=== PATIENT | male | born 1940 | race Caucasian/White ===

== ENCOUNTER → 2017-08-11 | Outpatient (CLI) | payer MEDICARE ==
[~2017-08-11] MED LIST: ANEXSIA 7.5/321 EACH; ASPIRIN LOW DOS81 MG PO; CEPHALEXIN; METRONIDAZOLE500 MG PO; TRADJENTA5 MG PO; Z.0.ACTOS15 MG PO; Z.0.DIAZEPAM5 MG; Z.0.GLIPIZIDE10 MG PO; Z.0.LISINOPRIL20 MG PO; Z.0.LOVASTATIN20 MG PO; Z.0.MELOXICAM15 MG; Z.0.ONGLYZA5 MG PO; Z.0.TRICOR145 MG PO
--- NOTE | 2017-08-11 16:29 | Diagnostic Imaging Report ---
Exam: Head CT without contrast History: Leg pain, weakness Comparison studies: None Technique: Axial images were obtained from the skull base to the vertex. Coronal and sagittal images reconstructed from the axial data. Intravenous contrast: None Findings: Scalp: No abnormalities. Bones: No fractures, blastic or lytic lesions. Brain sulci: Mildly prominent. Ventricles: Mild compensatory dilatation. No hydrocephalus. Extra-axial spaces: No masses, no fluid collection. Parenchyma: No mass, acute hemorrhage or acute cortical vascular insults. A few subtle hypodensities in the supratentorial white matter are nonspecific but most compatible with chronic small vessel ischemic changes. Incidental normal variant prominent prevascular space along the inferior margin of the left putamen. Sellar/suprasellar region: No abnormalities. Craniocervical junction: Patent foramen magnum. No Chiari one malformation. Incidental findings: Atherosclerotic calcifications in the carotid siphons and left intradural vertebral artery. IMPRESSION: No acute abnormalities. Chronic findings: 1. Mild generalized volume loss. 2. Mild supratentorial microvascular ischemic changes. Signed by: Dr. Maged Dickson M.D. on 08/11/2017 4:26 PM
== END ==
LOC: CT 15:14
PROVIDERS: ATTEND Family Medicine
DX: M79.605 Pain in left leg (principal); R20.0 Anesthesia of skin
CPT/HCPCS: 70450

== ENCOUNTER 2017-10-07 13:33 | Emergency (ER) | payer MEDICARE ==
[~2017-10-07] VITALS: Ht 180.3 cm; Wt 77.1 kg
--- OUTSIDE RECORDS SUMMARY | 2017-10-07 13:37 | XMS REPORT ---
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 Allergies, Adverse Reactions, Alerts This patient has no known allergies or adverse reactions. Medications This patient has no known medications. Results Test Description Test Time Test Comments Text Results Atomic Results Result Comments CT BRAIN WO [place] [address] Patient Name: CARSON CRAVEN MR #: [id number] : 1940 Age/Sex: 77/M Req #: [id number] Adm Physician: Ordered by: ROBERT KENNEDY DO Report #: [id number] Location: CT Room/Bed: Procedure: [id number] CT/CT BRAIN WO Exam Date: Exam Time: REPORT STATUS: Signed Exam: Head CT without contrast History: Leg pain, weakness Comparison studies: None Technique: Axial images were obtained from the skull base to the vertex. Coronal and sagittal images reconstructed from the axial data. Intravenous contrast: None Findings: Scalp: No abnormalities. Bones: No fractures, blastic or lytic lesions. Brain sulci : Mildly prominent. Ventricles: Mild compensatory dilatation. No hydrocephalus. Extra-axial spaces: No masses, no fluid collection. Parenchyma: No mass, acute hemorrhage or acute cortical vascular insults. A few subtle hypodensities in the supratentorial white matter are nonspecific but most compatible with chronic small vessel ischemic changes. Incidental normal variant prominent prevascular space along the inferior margin of the left putamen. Sellar/suprasellar region: No abnormalities. Craniocervical junction: Patent foramen magnum. No Chiari one malformation. Incidental findings: Atherosclerotic calcifications in the carotid siphons and left intradural vertebral artery. IMPRESSION: No acute abnormalities. Chronic findings: 1. Mild generalized volume loss. 2. Mild supratentorial microvascular ischemic changes. Signed by: Dr. Rose Dickson M.D. on 08/11/2017 4:26 PM Dictated By: ROSE DICKSON MD 25 Transcribed By: ALLISON on 08/11/171625 COPY TO: ROBERT KENNEDY DO CHEST 2 VIEWS [place] [address] Patient Name: CARSON CRAVEN MR #: [id number] : 1940 Age/Sex: 76/M Req #: [id number] Adm Physician: Ordered by: GILMA GARCIA MD Report #: [id number] Location: [facility] Room/Bed: Procedure: [id number] DX/CHEST 2 VIEWS Exam Date: 05/29/17 Exam Time: 1340 REPORT STATUS: Signed PROCEDURE: Frontal and lateral views of the chest. COMPARISON: [facility], CT, CT ABDOMEN/PELVIS W CONTRAST, 03/29/2011, 23:51. [facility], DX, ABDOMEN ACUTE SERIES W/PA CXR, 02/02/2016, 21:42. INDICATIONS: COUGH, ASBESTOS EXPOSURE FINDINGS: Lines/tubes: None. Lungs: The lungs are well inflated. Stable wedge-shaped opacity in the left lower lobe/left retrocardiac region, corresponding to the previously visualized chronic bronchiectasis/scarring on CT dated 03/29/2011. There is no evidence of New consolidation or pulmonary edema. Pleura: There is no pleural effusion or pneumothorax. Stable blunting of the right lateral costophrenic sulcus and right posterior costophrenic sulcus secondary to pleural thickening Heart and mediastinum: Cardiac silhouette is unremarkable. Pulmonary vasculature is normal. Bones: No acute bony abnormality. IMPRESSION : 1. No acute cardiopulmonary disease. 2. Stable left retrocardiac/ lower lobe chronic scarring with bronchiectasis as well as right lateral and left posterior costophrenic sulci pleural thickening Jose Antonio Rebolledo M.D. Dictated by: Jose Antonio Rebolledo M.D. on 05/29/2017 at 14:33 Electronically approved by: Jose Antonio Rebolledo M.D. on 05/29/2017 at 14:33 Dictated By: JOSE ANTONIO REBOLLEDO MD 1433 Transcribed By: BEKA on 05/29/17 1433 COPY TO: GILMA GARCIA MD
[2017-10-07] MEDS ORDERED: SODIUM CHLORIDE 0.9% 1000ML 1,000 ML IV STA (14:32)
[2017-10-07 14:55] LABS: BASOPHILS # (AUTO) 0.1 (0.0-0.1); BASOPHILS % 0.8 % (0.0-1.0); EOSINOPHILS # (AUTO) 0.2 (0.0-0.4); EOSINOPHILS % 3.3 % (0.0-6.0); HEMOGLOBIN 12.4 g/dL (14.0-18.0); LYMPHOCYTES # (AUTO) 2.2 (1.0-3.2); LYMPHOCYTES % 33.7 % (18.0-39.1); MEAN CORPUSCULAR HEMOGLOBIN 27.9 pg (28-32); MEAN CORPUSCULAR HGB CONC 33.5 g/dL (31-35); MEAN CORPUSCULAR VOLUME 83.3 fL (81-99); MONOCYTES # (AUTO) 0.4 (0.2-0.8); MONOCYTES % 5.4 % (4.4-11.3); NEUTROPHILS # (AUTO) 3.8 (2.1-6.9); NEUTROPHILS % 56.6 % (38.7-80.0); PLATELET COUNT 198 x10e3/uL (140-360); RED BLOOD COUNT 4.44 x10e6/uL (4.3-5.7); RED CELL DISTRIBUTION WIDTH 14.9 % (11.7-14.4)
[2017-10-07 15:12] LABS: ALANINE AMINOTRANSFERASE 18 IU/L (0-55); ALBUMIN 3.8 g/dL (3.5-5.0); ALBUMIN/GLOBULIN RATIO 1.5 (0.8-2.0); ALKALINE PHOSPHATASE 61 IU/L (40-150); ANION GAP 13.5 mmol/L (8-16); BLOOD UREA NITROGEN 20 mg/dL (7-26); BUN/CREATININE RATIO 15 (6-25); CALCIUM 9.3 mg/dL (8.4-10.2); CARBON DIOXIDE 22 mmol/L (22-29); CHLORIDE 108 mmol/L (98-107); CREATINE KINASE 86 IU/L (30-200); CREATININE, SERUM 1.34 mg/dL (0.72-1.25); EST GLOMERULAR FILTRATION RATE 52 ML/MIN (60-); GLUCOSE 228 mg/dL (74-118); POTASSIUM 4.5 mmol/L (3.5-5.1); SODIUM 139 mmol/L (136-145)
[2017-10-07 15:14] LABS: BILIRUBIN,URINE NEGATIVE (NEGATIVE); CLARITY,URINE CLEAR (CLEAR); COLOR,URINE YELLOW (YELLOW); EPITHELIAL CELLS,URINE RARE /LPF; KETONES,URINE NEGATIVE (NEGATIVE); LEUKOCYTE ESTERASE ,URINE NEGATIVE (NEGATIVE); NITRITE,URINE NEGATIVE (NEGATIVE); PROTEIN,URINE DIPSTICK NEGATIVE (NEGATIVE); URINE UROBILINOGEN 0.2 mg/dL (0.2 - 1)
--- NOTE | 2017-10-07 16:02 | Diagnostic Imaging Report ---
EXAMINATION: PA and lateral views of the chest. COMPARISON: Chest PA and lateral 05/29/2017 CLINICAL HISTORY: Weakness, shortness of breath DISCUSSION: Lines/tubes: None. Lungs: The lungs are well inflated. Linear opacities in the lateral left lower lung likely represent subsegmental atelectasis or scarring, and are stable. There is no evidence of consolidation or pulmonary edema. Pleura: Stable blunting of the left lateral and posterior costophrenic sulci, likely reflecting small pleural effusion or pleural thickening. Heart and mediastinum: Cardiomediastinal silhouette is unremarkable. Pulmonary vasculature is normal. Bones and soft tissues: No acute bony abnormalities. Degenerative changes in the thoracic spine IMPRESSION: No acute cardiopulmonary abnormalities. Stable small left pleural effusion versus pleural thickening. Signed by: Dr. Aayush Rebolledo M.D. on 10/07/2017 3:59 PM
== END 2017-10-07 18:22 | disposition home or self-care (01) ==
LOC: ER 13:33
DX: R53.1 Weakness (principal); I10 Essential (primary) hypertension; E11.9 Type 2 diabetes mellitus without complications; E78.5 Hyperlipidemia, unspecified
CPT/HCPCS: 36415; 71046; 80053; 81001; 82550; 82553; 84484; 85025; 93005; 99284

== ENCOUNTER → 2019-10-01 | Outpatient (CLI) | payer MEDICARE ==
[~2019-10-01] MED LIST changes: +GADOBENATE DIMEGLUMINE 1 ML IV ONE; +IOPAMIDOL 200 MG/ML 20 ML VIAL IT ONE; +IOPAMIDOL 300 MG/ML 15ML VIAL IT ONE
--- NOTE | 2019-10-01 09:47 | Diagnostic Imaging Report ---
PROCEDURE: Fluoroscopically guided arthrogram of left shoulder Procedural Personnel Attending physician(s): Shemar Duarte DO Fellow physician(s): None Resident physician(s): None Advanced practice provider(s): None Pre-procedure diagnosis: Impingement syndrome Post-procedure diagnosis: Same Indication: Same Additional clinical history: None Complications: No immediate complications. IMPRESSION: Fluoroscopically guided left shoulder arthrogram PROCEDURE SUMMARY: - Fluoroscopically guided arthrogram of the left shoulder. - Patient to be transported to MRI PROCEDURE DETAILS: Pre-procedure Consent: Informed consent for the procedure including risks, benefits and alternatives was obtained and time-out was performed prior to the procedure. Preparation: The site was prepared and draped using maximal sterile barrier technique including cutaneous antisepsis. Anesthesia/sedation Level of anesthesia/sedation: Local 1% lidocaine Arthrogram Ballpoint Pen Cartridge Tester images were obtained. Following local 1% lidocaine anesthesia, a 22 gauge spinal needle was advanced to the left shoulder joint space . Intra-articular positioning was confirmed with injection of 1cc Isovue contrast material. Subsequently, 0.1 mL of gadolinium arthrogram solution was administered to the joint (containing 7cc normal saline, 3cc Isovue, 0.1cc Multihance gadolinium based contrast). Radiation Dose Fluoroscopy time: Less than 1 minute 2 images Additional Details Additional description of procedure: None Equipment details: None Specimens removed: Estimated blood loss (mL): Less than 10 Attestation Signer name: Shemar Duarte DO I attest that I was present for the entire procedure. I reviewed the stored images and agree with the report as written. Signed by: Shemar Duarte MD on 10/01/2019 9:44 AM
--- NOTE | 2019-10-01 12:17 | Diagnostic Imaging Report ---
TECHNIQUE: Magnetic resonance imaging of the LEFT SHOULDER was performed after intra-articular injection of contrast. COMPARISON: None available. HISTORY: Pain FINDINGS: MUSCLES AND TENDONS: Rotator Cuff: Tendons: Full thickness tear of the supraspinatus at the humeral insertion with additional interstitial tearing involving the infraspinatus. Muscles: No focal muscle atrophy. Biceps Tendon: The long head of the biceps tendon is intact and within the intertubercular groove. GLENOHUMERAL JOINT: Glenoid Labrum: No displaced tear. Articular Cartilage: No focal defect. AC JOINT AND ACROMION: Moderate hypertrophic degenerative changes of the acromioclavicular joint. Subacromial spurring. Bone: No acute fracture. Soft Tissues: Otherwise, the soft tissues appear unremarkable. IMPRESSION: Supraspinatus full-thickness tear at the humeral insertion with additional interstitial tearing extending into the infraspinatus. Acromioclavicular arthrosis with subacromial spurring. Signed by: Dr. Justin May M.D. on 10/01/2019 12:13 PM
== END ==
LOC: DX 07:56
PROVIDERS: ATTEND Orthopaedic Surgery
DX: S43.422A Sprain of left rotator cuff capsule, initial encounter (principal); M75.42 Impingement syndrome of left shoulder
CPT/HCPCS: 23350; 73222; 77002; A9577; Q9967

== ENCOUNTER 2020-11-05 11:58 | Inpatient (IN) | payer MEDICARE ==
[~2020-11-05] VITALS: Ht 177.8 cm; Wt 77.1 kg
[~2020-11-05 11:58] MED LIST changes: -GADOBENATE DIMEGLUMINE 1 ML IV ONE; -IOPAMIDOL 200 MG/ML 20 ML VIAL IT ONE; -IOPAMIDOL 300 MG/ML 15ML VIAL IT ONE
[2020-11-05] MEDS ORDERED: ASPIRIN 81 MG CHEW TAB PO ONE (12:30)
[2020-11-05 12:56] LABS: BASOPHILS % 0.5 % (0.0-1.0); EOSINOPHILS # (AUTO) 0.2 (0.0-0.4); HEMATOCRIT 36.7 % (38.2-49.6); HEMOGLOBIN 11.7 g/dL (14.0-18.0); LYMPHOCYTES # (AUTO) 1.3 (1.0-3.2); LYMPHOCYTES % 22.6 % (18.0-39.1); MEAN CORPUSCULAR HEMOGLOBIN 27.4 pg (28-32); MEAN CORPUSCULAR HGB CONC 31.9 g/dL (31-35); MEAN CORPUSCULAR VOLUME 85.9 fL (81-99); MONOCYTES # (AUTO) 0.3 (0.2-0.8); MONOCYTES % 5.1 % (4.4-11.3); NEUTROPHILS # (AUTO) 3.9 (2.1-6.9); NEUTROPHILS % 67.4 % (38.7-80.0); PLATELET COUNT 197 x10e3/uL (140-360); RED BLOOD COUNT 4.27 x10e6/uL (4.3-5.7); RED CELL DISTRIBUTION WIDTH 14.9 % (11.7-14.4)
[2020-11-05 13:12] LABS: INR 0.95; PROTHROMBIN TIME 13.3 seconds (11.9-14.5)
[2020-11-05 13:13] LABS: ANION GAP 16.9 mmol/L (8-16); CALCIUM 8.9 mg/dL (8.4-10.2); CREATININE, SERUM 1.44 mg/dL (0.72-1.25)
[2020-11-05 13:21] LABS: CREATINE KINASE MB 1.9 ng/mL (0-5.0)
[2020-11-05 13:24] LABS: POTASSIUM 5.9 mmol/L (3.5-5.1)
[2020-11-05] MEDS ORDERED: CALCIUM GLUCONATE 10% INJ 4.65 MEQ in SODIUM CHLORIDE 0.9% 50ML 50 ML IV ONE (13:30)
[2020-11-05] MEDS ORDERED: SODIUM BICARBONATE 8.4% INJ 50 ML SYR IV STA (13:30)
[2020-11-05] MEDS ORDERED: SODIUM CHLORIDE 0.9% 500ML 500 ML IV ONE (13:45)
[2020-11-05] MEDS ORDERED: SOD POLYSTYRENE SULFONATE SUSP 15 GM/60 ML BTL PO ONE (13:45)
[2020-11-05 14:30] VITALS: BP 140/59
[2020-11-05 14:54] VITALS: BP 140/59
[2020-11-05] MEDS ORDERED: AMARYL2 MG PO (15:23)
[2020-11-05] MEDS ORDERED: ASPIRIN325 MG PO (15:23)
[2020-11-05] MEDS ORDERED: ATORVASTATIN CA20 MG PO (15:23)
[2020-11-05] MEDS ORDERED: OMEPRAZOLE40 MG PO (15:23)
[2020-11-05] MEDS ORDERED: METFORMIN HCL500 MG PO (15:23)
[2020-11-05] MEDS ORDERED: HYDROCHLOROTHIA25 MG PO (15:23)
[2020-11-05] MEDS ORDERED: NIFEDIPINE ER30 M1 PO (15:23)
[2020-11-05] MEDS ORDERED: MIDAZOLAM HCL 2 MG/2 ML VIAL ONE ×2 (15:34→18:01)
[2020-11-05] MEDS ORDERED: LIDOCAINE 1% W/EPINEPHRINE 20 ML VIAL ONE (15:35)
[2020-11-05] MEDS ORDERED: FENTANYL CITRATE/PF 100MCG/2 ML INJ ONE (15:35)
[2020-11-05] MEDS ORDERED: SODIUM CHLORIDE 0.9% 500ML 500 ML ONE (15:36)
[2020-11-05] MEDS ORDERED: VANCOMYCIN 1GM/NS 250 ML 500 ML ONE (15:36)
[2020-11-05] MEDS ORDERED: SODIUM CHLORIDE 0.9% 1000ML 2,000 ML ONE (15:37)
[2020-11-05 15:45] VITALS: BP 140/59
[2020-11-05] MEDS ORDERED: GENTAMICIN SULFATE 40 MG/ML 2 ML VIAL ONE (16:57)
[2020-11-05 20:00] VITALS: BP 120/49
[2020-11-05 20:30] VITALS: BP 140/59
[2020-11-05] MEDS ORDERED: CEFAZOLIN SOD 1 GM VIAL IV SCH (22:00)
[2020-11-05] MEDS: CEFAZOLIN SOD 1 GM/NS 50ML 50 ML IV SCH (22:00)
[2020-11-05] MEDS ORDERED: SODIUM CHLORIDE 0.9% 250ML 250 ML ONE (22:12)
[2020-11-06] VITALS (8 sets, daily range): BP systolic 100–167; BP diastolic 62–78
[2020-11-06] MEDS: MORPHINE SULFATE INJ 2 MG/ML SYR IV PRN ×2 (04:19→06:09)
[2020-11-06 05:38] LABS: BASOPHILS % 0.3 % (0.0-1.0); EOSINOPHILS # (AUTO) 0.2 (0.0-0.4); EOSINOPHILS % 2.6 % (0.0-6.0); HEMATOCRIT 34.2 % (38.2-49.6); HEMOGLOBIN 11.2 g/dL (14.0-18.0); LYMPHOCYTES # (AUTO) 1.1 (1.0-3.2); LYMPHOCYTES % 16.4 % (18.0-39.1); MEAN CORPUSCULAR HEMOGLOBIN 27.4 pg (28-32); MEAN CORPUSCULAR HGB CONC 32.7 g/dL (31-35); MEAN CORPUSCULAR VOLUME 83.6 fL (81-99); MONOCYTES # (AUTO) 0.4 (0.2-0.8); MONOCYTES % 5.5 % (4.4-11.3); NEUTROPHILS # (AUTO) 4.9 (2.1-6.9); NEUTROPHILS % 74.7 % (38.7-80.0); PLATELET COUNT 151 x10e3/uL (140-360); RED BLOOD COUNT 4.09 x10e6/uL (4.3-5.7); RED CELL DISTRIBUTION WIDTH 14.8 % (11.7-14.4)
[2020-11-06 06:03] LABS: ANION GAP 13.7 mmol/L (8-16); BLOOD UREA NITROGEN 20 mg/dL (7-26); BUN/CREATININE RATIO 22 (6-25); CALCIUM 8.5 mg/dL (8.4-10.2); CARBON DIOXIDE 24 mmol/L (22-29); CHLORIDE 109 mmol/L (98-107); EST GLOMERULAR FILTRATION RATE > 60 ML/MIN (60-); GLUCOSE 102 mg/dL (74-118); POTASSIUM 4.7 mmol/L (3.5-5.1); SODIUM 142 mmol/L (136-145)
[2020-11-06] MEDS: CEFAZOLIN SOD 1 GM/NS 50ML 50 ML IV SCH (06:40)
[2020-11-06] MEDS ORDERED: HYDROCODONE/APAP 7.5MG-325MG 1 EA TAB PO PRN (10:15)
[2020-11-06] MEDS: GLIMEPIRIDE 2 MG TAB PO SCH ×2 (12:17→17:13)
[2020-11-06] MEDS ORDERED: METFORMIN HCL 500 MG TAB PO SCH (13:00)
[2020-11-06] MEDS ORDERED: ATORVASTATIN 20 MG TAB PO SCH (21:00)
[2020-11-07] VITALS: BP 166/68
[2020-11-07 04:00] VITALS: BP 138/87
[2020-11-07] MEDS: MORPHINE SULFATE INJ 2 MG/ML SYR IV PRN (04:28)
[2020-11-07 08:20] VITALS: BP 152/68
[2020-11-07] MEDS: GLIMEPIRIDE 2 MG TAB PO SCH ×2 (08:30→16:30)
[2020-11-07] MEDS ORDERED: ASPIRIN 325 MG TAB PO SCH (09:00)
[2020-11-07] MEDS ORDERED: PANTOPRAZOLE SOD 40 MG TABEC PO SCH (09:00)
[2020-11-07] MEDS ORDERED: NIFEDIPINE CR 30 MG TAB PO SCH (09:00)
[2020-11-07] MEDS ORDERED: HYDROCHLOROTHIAZIDE 25 MG TAB PO SCH (09:00)
[2020-11-07] MEDS ORDERED: LISINOPRIL 20 MG TAB PO SCH (09:00)
[2020-11-07 10:18] VITALS: BP 150/68
[2020-11-07 12:26] VITALS: BP 150/75
[2020-11-07] MEDS ORDERED: MINOCYCLINE HCL50 MG PO (13:44)
[2020-11-07] MEDS ORDERED: ULTRAM50 MG PO (13:45)
[2020-11-07 16:10] VITALS: BP 131/61
== END 2020-11-07 16:30 | disposition home or self-care (01) | DRG 244 ==
LOC: ER 13:32 → ERHOLD 13:39 → MED/SURG2 14:53
PROC: 0JH606Z Insertion of Pacemaker, Dual Chamber into Chest Subcutaneous Tissue and Fascia, Open Approach (ICD-10-PCS; principal; 2020-11-05)
PROC: 02H63JZ Insertion of Pacemaker Lead into Right Atrium, Percutaneous Approach (ICD-10-PCS; 2020-11-05)
PROC: 02HK3JZ Insertion of Pacemaker Lead into Right Ventricle, Percutaneous Approach (ICD-10-PCS; 2020-11-05)
PROC: 3E0132A Introduction of Anti-Infective Envelope into Subcutaneous Tissue, Percutaneous Approach (ICD-10-PCS; 2020-11-05)
DX: I44.1 Atrioventricular block, second degree (principal); I10 Essential (primary) hypertension; E78.5 Hyperlipidemia, unspecified; E78.00 Pure hypercholesterolemia, unspecified; N40.0 Benign prostatic hyperplasia without lower urinary tract symptoms; F17.210 Nicotine dependence, cigarettes, uncomplicated; Z20.822 Contact with and (suspected) exposure to COVID-19; E11.9 Type 2 diabetes mellitus without complications; Z79.82 Long term (current) use of aspirin; Z79.84 Long term (current) use of oral hypoglycemic drugs
CPT/HCPCS: 33208; 36415; 71045; 80048; 82550; 82553; 82948; 84484; 85025; 85610; 93005; 99152; 99153; 99284; J0610; J0690; J1580; J2250; J2270; J3010; J3370; J7030; J7040; J7050; U0002

== ENCOUNTER 2022-09-18 21:02 | Emergency (ER) | payer MEDICARE ==
[~2022-09-18] VITALS: Ht 177.8 cm; Wt 77.1 kg
[~2022-09-18 21:02] MED LIST changes: +AMARYL2 MG PO; +ASPIRIN325 MG PO; +ATORVASTATIN CA20 MG PO; +HYDROCHLOROTHIA25 MG PO; +METFORMIN HCL500 MG PO; +MINOCYCLINE HCL50 MG PO; +NIFEDIPINE ER30 M1 PO; +OMEPRAZOLE40 MG PO; +ULTRAM50 MG PO
[2022-09-18 21:25] LABS: BASOPHILS % 0.5 % (0.0-1.0); EOSINOPHILS # (AUTO) 0.2 (0.0-0.4); EOSINOPHILS % 3.8 % (0.0-6.0); HEMATOCRIT 33.4 % (38.2-49.6); HEMOGLOBIN 10.3 g/dL (14.0-18.0); LYMPHOCYTES # (AUTO) 2.1 (1.0-3.2); MEAN CORPUSCULAR HEMOGLOBIN 25.9 pg (28-32); MEAN CORPUSCULAR HGB CONC 30.8 g/dL (31-35); MEAN CORPUSCULAR VOLUME 83.9 fL (81-99); MONOCYTES # (AUTO) 0.4 (0.2-0.8); MONOCYTES % 6.5 % (4.4-11.3); NEUTROPHILS # (AUTO) 3.6 (2.1-6.9); PLATELET COUNT 137 x10e3/uL (140-360); RED BLOOD COUNT 3.98 x10e6/uL (4.3-5.7); RED CELL DISTRIBUTION WIDTH 15.5 % (11.7-14.4)
[2022-09-18 21:46] LABS: ALBUMIN 3.6 g/dL (3.5-5.0); ALBUMIN/GLOBULIN RATIO 1.4 (0.8-2.0); ANION GAP 12.1 mmol/L (8-16); CALCIUM 8.4 mg/dL (8.4-10.2); CREATININE, SERUM 1.23 mg/dL (0.72-1.25); POTASSIUM 4.1 mmol/L (3.5-5.1)
[2022-09-18 22:10] LABS: CREATINE KINASE MB 1.9 ng/mL (0-5.0)
[2022-09-18] MEDS ORDERED: IOPAMIDOL 370 MG/ML 100 ML INFUS..BTL INJ ONE (22:47)
[2022-09-19] MEDS ORDERED: PANTOPRAZOLE SO40 MG PO (00:20)
[2022-09-19 00:32] VITALS: BP 153/56
== END 2022-09-19 00:33 | disposition home or self-care (01) ==
LOC: ER 21:07
DX: R10.13 Epigastric pain (principal); K29.70 Gastritis, unspecified, without bleeding; I10 Essential (primary) hypertension; E11.9 Type 2 diabetes mellitus without complications; E78.5 Hyperlipidemia, unspecified; R94.31 Abnormal electrocardiogram [ECG] [EKG]
CPT/HCPCS: 36415; 71045; 74177; 80053; 82550; 82553; 83690; 84484; 85025; 93005; 99284; C9113; Q9967